=== PATIENT | male | born 1930 | race Caucasian/White ===

== ENCOUNTER 2018-02-08 19:57 | Inpatient (IN) | payer MEDICARE, BC ==
[~2018-02-08] VITALS: Ht 6038.7 cm; Wt 80.9 kg
[~2018-02-08 19:57] MED LIST: ASCO500C15 PO; BUDE10.2 INH; CETI5TAB8 PO; CILO100T PO; CINN500C16 PO; DIGO-27 PO; DULO30CA51 PO; FURO40TA4 PO; GABA-532 PO; HYDR-569 PO; LEVO25TA2 PO; MAGN400C PO; METH500T6 PO; METO25TA6 PO; OMEG1CAP46 PO; OMEP40CA PO; POTA10TA15 PO; PRED20TA PO; SPIR25TA PO; TIOT18CA7 IH; WARF6TAB49 PO; ZOC40T PO
[2018-02-08] MEDS ORDERED: albuterol 2.5 MG/3 ML nebule NEB ONE (20:30)
[2018-02-08 21:19] LABS: BASOPHILS # (AUTO) 0.2 X10'3 (0-0.2); BASOPHILS % (AUTO) 2.1 % (0-1); EOSINOPHILS # (AUTO) 0.2 X10'3 (0-0.9); HEMATOCRIT 34.8 % (42.0-52.0); HEMOGLOBIN 11.6 g/dl (14.0-17.9); LYMPHOCYTES # (AUTO) 1.9 X10'3 (1.1-4.8); LYMPHOCYTES % (AUTO) 22.2 % (21-51); MEAN CORPUSCULAR HGB CONC 33.4 % (33.0-36.5); MEAN CORPUSCULAR VOLUME 92.8 FL (78-98); MEAN PLATELET VOLUME 8.4 FL (7.4-10.4); MONOCYTES # (AUTO) 0.8 X10'3 (0-0.9); MONOCYTES % (AUTO) 9.2 % (2-12); NEUTROPHILS # (AUTO) 5.6 X10'3 (1.8-7.7); NEUTROPHILS % (AUTO) 64.5 % (42-75); PLATELET COUNT 179 X10'3 (140-440); RED BLOOD COUNT 3.75 X10'6 (4.70-6.10); RED CELL DISTRIBUTION WIDTH 15.2 % (11.5-14.5); WHITE BLOOD COUNT 8.7 X10'3 (4.5-11.0)
[2018-02-08 21:35] LABS: PARTIAL THROMBOPLASTIN TIME 44 SECONDS (22-32); PROTHROMBIN TIME 30.3 SECONDS (9.0-12.0)
[2018-02-08] MEDS ORDERED: methylPREDNISolone sod succ 125mg/2ml vial IV ONE (21:40)
[2018-02-08 21:45] LABS: ALANINE AMINOTRANSFERASE 20 U/L (12-78); ALBUMIN 3.4 G/DL (3.4-5.0); ALKALINE PHOSPHATASE 79 IU/L (46-116); ANION GAP 6 (8-16); ASPARTATE AMINO TRANSFERASE 23 U/L (10-37); BILIRUBIN,TOTAL 0.6 MG/DL (0.1-1.0); BLOOD UREA NITROGEN 19 MG/DL (7-18); BUN/CREATININE RATIO 17.4 (5.4-32.0); CALCIUM 8.8 MG/DL (8.5-10.1); CHLORIDE 101 MMOL/L (99-107); CREATININE 1.09 MG/DL (0.60-1.10); GLUCOSE 110 MG/DL (70-104); MAGNESIUM 2.1 MG/DL (1.5-2.4); POTASSIUM 4.3 MMOL/L (3.5-5.1); SODIUM 141 MMOL/L (135-145); TOTAL CARBON DIOXIDE 33.9 MMOL/L (24-32); TOTAL PROTEIN 6.9 G/DL (6.4-8.2); eGFR 64 ML/MIN
[2018-02-08] MEDS ORDERED: acetaminophen 325mg tablet PO ONE (22:55)
[2018-02-08] MEDS ORDERED: PRED20TA PO (22:57)
[2018-02-08] MEDS ORDERED: HYDROcodone/acetaminophen 5mg/325mg tablet PO ONE (23:00)
[2018-02-09 00:31] LABS: ABG BASE EXCESS 3.3 mmol/L (-2.0-3.0); ABG HCO3 27.8 mmol/L (22.0-26.0); ABG OXYGEN SATURATION 86.8 % (95-98); ABG PCO2 (T) 41.7 mmHg (35.0-48.0); ABG PO2 (T) 52.5 mmHg (83-108); ALLEN'S TEST Positive; FCOHb 0.6 % (0.5-1.5); FLOW 4 L/min; FMetHb 0.1 % (0.3-1.12); FO2Hb 86.2 % (94-100); PATIENT TEMPERATURE 36.7; TOTAL HEMOGLOBIN 12.5 G/dl (14.0-18.0)
[2018-02-09] MEDS ORDERED: metoclopramide 5 mg/ml inj IV PRN (00:35)
[2018-02-09] MEDS ORDERED: HYDROcodone/acetaminophen 5mg/325mg tablet PO PRN (00:35)
[2018-02-09] MEDS ORDERED: acetaminophen 650mg rectal suppository RC PRN (00:35)
[2018-02-09] MEDS ORDERED: bisacodyl 10mg suppository rectal RC PRN (00:35)
[2018-02-09] MEDS ORDERED: acetaminophen 325mg tablet PO PRN ×2 (00:35)
[2018-02-09] MEDS ORDERED: diphenhydrAMINE 25mg capsule PO PRN (00:35)
[2018-02-09] MEDS ORDERED: HYDROmorphone inj. 0.5 MG/0.5 ML DISP.SYRIN IV PRN ×2 (00:35)
[2018-02-09] MEDS ORDERED: magnesium hydroxide 30ml (MOM) UD suspension PO PRN (00:35)
[2018-02-09] MEDS ORDERED: mag hydrox/Alum hydrox/simeth 30ml oral suspension PO PRN (00:35)
[2018-02-09] MEDS ORDERED: ondansetron/PF 4mg/2ml inj IV PRN (00:35)
[2018-02-09] MEDS ORDERED: diphenhydrAMINE 50 mg/ml inj IV PRN (00:35)
[2018-02-09] MEDS ORDERED: morphine 4 MG/ML inj SYRINge IV PRN ×2 (00:35)
[2018-02-09] MEDS: CefTRIAXone/D5W-Rocephin 1gm 50 ML IV SCH ×2 (01:40→21:07)
[2018-02-09] MEDS: azithromycin 250mg tablet PO SCH ×2 (01:40→21:07)
[2018-02-09] MEDS ORDERED: LORazepam 2 mg/ml vial ONE (07:52)
[2018-02-09] MEDS ORDERED: LORazepam 2 mg/ml vial IV ONE (07:55)
[2018-02-09] MEDS: lactobacillus rhamnosus 10,000 MMU CELLS/CAPSULE PO SCH ×2 (08:43→20:14)
[2018-02-09] MEDS: levoTHYROXINE 25mcg tablet PO SCH (08:44)
[2018-02-09] MEDS: metoprolol tartrate 25mg tablet PO SCH ×2 (08:44→20:14)
[2018-02-09] MEDS: digoxin 250mcg (0.25mg) tablet PO SCH (08:44)
[2018-02-09] MEDS: pantoprazole 40mg Tablet.DR PO SCH (08:44)
[2018-02-09] MEDS: gabapentin 300mg capsule PO SCH ×2 (08:45→20:15)
[2018-02-09] MEDS: HYDROcodone/acetaminophen 5mg/325mg tablet PO SCH ×2 (08:45→20:14)
[2018-02-09] MEDS: docusate sod 100mg capsule PO SCH ×2 (08:45→20:15)
[2018-02-09] MEDS: furosemide 10 MG/1 ML 10ml inj IV SCH (08:48)
[2018-02-09] MEDS ORDERED: ipratropium/albuterol 3ml nebule ONE (09:05)
[2018-02-09] MEDS ORDERED: ipratropium/albuterol 3ml nebule NEB PRN (09:10)
[2018-02-09 09:17] LABS: LIPASE < 50 U/L (73-393)
[2018-02-09] MEDS ORDERED: diltiazem-NS 100mg/100ml 100 ML IV PRN (10:00)
[2018-02-09] MEDS ORDERED: albuterol 2.5 MG/3 ML nebule NEB PRN (10:00)
[2018-02-09] MEDS: methylPREDNISolone sod succ 125mg/2ml vial IV SCH ×3 (10:20→20:23)
[2018-02-09] MEDS: cilostazol 50mg tablet PO SCH ×2 (10:23→16:31)
[2018-02-09] MEDS: ipratropium/albuterol 3ml nebule NEB SCH ×4 (11:40→23:00)
[2018-02-09] MEDS ORDERED: temazepam 15mg capsule PO PRN (21:00)
[2018-02-09] MEDS ORDERED: warfarin 5mg tablet PO ONE (21:00)
[2018-02-09] MEDS ORDERED: warfarin 3mg tablet PO SCH (21:00)
[2018-02-09] MEDS ORDERED: ipratropium/albuterol 3ml nebule NEB SCH (21:00)
[2018-02-09] MEDS: cyclobenzaprine 10mg tablet PO SCH (21:07)
[2018-02-09] MEDS: duloxetine 30mg CAPSULE.DR PO SCH (21:13)
[2018-02-09] MEDS: atorvastatin 20mg tablet PO SCH (21:13)
[2018-02-10] MEDS: methylPREDNISolone sod succ 125mg/2ml vial IV SCH ×4 (02:33→22:09)
[2018-02-10] MEDS: ipratropium/albuterol 3ml nebule NEB SCH ×6 (02:44→23:02)
[2018-02-10] MEDS: cilostazol 50mg tablet PO SCH ×2 (07:00→16:00)
[2018-02-10 07:10] LABS: BASOPHILS % (AUTO) 0.4 % (0-1); EOSINOPHILS # (AUTO) 0.1 X10'3 (0-0.9); EOSINOPHILS % (AUTO) 0.6 % (0-6); HEMATOCRIT 34.1 % (42.0-52.0); HEMOGLOBIN 11.2 g/dl (14.0-17.9); LYMPHOCYTES # (AUTO) 0.6 X10'3 (1.1-4.8); LYMPHOCYTES % (AUTO) 6.6 % (21-51); MEAN CORPUSCULAR HEMOGLOBIN 30.4 PG (27.0-31.0); MEAN CORPUSCULAR HGB CONC 32.8 % (33.0-36.5); MEAN CORPUSCULAR VOLUME 92.5 FL (78-98); MEAN PLATELET VOLUME 8.4 FL (7.4-10.4); MONOCYTES # (AUTO) 0.1 X10'3 (0-0.9); MONOCYTES % (AUTO) 0.9 % (2-12); NEUTROPHILS # (AUTO) 7.9 X10'3 (1.8-7.7); NEUTROPHILS % (AUTO) 91.5 % (42-75); PLATELET COUNT 179 X10'3 (140-440); RED BLOOD COUNT 3.68 X10'6 (4.70-6.10); RED CELL DISTRIBUTION WIDTH 15.4 % (11.5-14.5); WHITE BLOOD COUNT 8.6 X10'3 (4.5-11.0)
[2018-02-10 07:19] LABS: INR 1.5 INR; PROTHROMBIN TIME 15.4 SECONDS (9.0-12.0)
[2018-02-10 07:30] LABS: ALANINE AMINOTRANSFERASE 20 U/L (12-78); ALBUMIN 3.1 G/DL (3.4-5.0); ALBUMIN/GLOBULIN RATIO 0.9 (1.1-1.5); ALKALINE PHOSPHATASE 72 IU/L (46-116); ANION GAP 8 (8-16); ASPARTATE AMINO TRANSFERASE 23 U/L (10-37); BILIRUBIN,TOTAL 0.5 MG/DL (0.1-1.0); BLOOD UREA NITROGEN 21 MG/DL (7-18); BUN/CREATININE RATIO 28.4 (5.4-32.0); CHLORIDE 102 MMOL/L (99-107); CREATININE 0.74 MG/DL (0.60-1.10); GLUCOSE 143 MG/DL (70-104); POTASSIUM 4.4 MMOL/L (3.5-5.1); SODIUM 140 MMOL/L (135-145); TOTAL PROTEIN 6.6 G/DL (6.4-8.2); eGFR > 90 ML/MIN
[2018-02-10] MEDS: pantoprazole 40mg Tablet.DR PO SCH (08:05)
[2018-02-10] MEDS: metoprolol tartrate 25mg tablet PO SCH (08:06)
[2018-02-10] MEDS: lactobacillus rhamnosus 10,000 MMU CELLS/CAPSULE PO SCH ×2 (08:09→22:06)
[2018-02-10] MEDS: lisinopril 2.5mg tablet PO SCH (08:09)
[2018-02-10] MEDS: docusate sod 100mg capsule PO SCH ×2 (08:10→22:06)
[2018-02-10] MEDS: aspirin 81mg tablet.DR PO SCH (08:10)
[2018-02-10] MEDS: gabapentin 300mg capsule PO SCH ×2 (08:10→22:06)
[2018-02-10] MEDS: levoTHYROXINE 25mcg tablet PO SCH (08:10)
[2018-02-10] MEDS: HYDROcodone/acetaminophen 5mg/325mg tablet PO SCH ×2 (08:11→22:28)
[2018-02-10] MEDS: furosemide 10 MG/1 ML 10ml inj IV SCH (08:12)
[2018-02-10] MEDS: digoxin 250mcg (0.25mg) tablet PO SCH (08:13)
[2018-02-10] MEDS: diltiazem CD 120mg capsule (once-daily) PO SCH (11:05)
[2018-02-10] MEDS ORDERED: LORazepam 2 mg/ml vial IV ONE (16:05)
[2018-02-10 20:00] VITALS: BP_SYST 118; BP_SYST 132; BP_DIAS 66; BP_DIAS 74
[2018-02-10] MEDS: CefTRIAXone/D5W-Rocephin 1gm 50 ML IV SCH (21:00)
[2018-02-10] MEDS ORDERED: warfarin 7.5mg tablet PO ONE (21:00)
[2018-02-10 22:00] VITALS: BP 118/66
[2018-02-10] MEDS: duloxetine 30mg CAPSULE.DR PO SCH (22:06)
[2018-02-10] MEDS: cyclobenzaprine 10mg tablet PO SCH (22:06)
[2018-02-10] MEDS: azithromycin 250mg tablet PO SCH (22:06)
[2018-02-10] MEDS: atorvastatin 20mg tablet PO SCH (22:06)
[2018-02-11 02:00] VITALS: BP 112/72
[2018-02-11] MEDS: methylPREDNISolone sod succ 125mg/2ml vial IV SCH ×4 (02:10→23:49)
[2018-02-11] MEDS: ipratropium/albuterol 3ml nebule NEB SCH ×6 (02:33→22:48)
[2018-02-11 05:41] LABS: INR 1.3 INR; PROTHROMBIN TIME 13.2 SECONDS (9.0-12.0)
[2018-02-11 06:09] LABS: ALANINE AMINOTRANSFERASE 23 U/L (12-78); ALBUMIN 2.9 G/DL (3.4-5.0); ALBUMIN/GLOBULIN RATIO 0.9 (1.1-1.5); ALKALINE PHOSPHATASE 63 IU/L (46-116); ANION GAP 5 (8-16); ASPARTATE AMINO TRANSFERASE 20 U/L (10-37); BILIRUBIN,TOTAL 0.4 MG/DL (0.1-1.0); BLOOD UREA NITROGEN 25 MG/DL (7-18); BUN/CREATININE RATIO 34.7 (5.4-32.0); CALCIUM 8.8 MG/DL (8.5-10.1); CHLORIDE 102 MMOL/L (99-107); CREATININE 0.72 MG/DL (0.60-1.10); GLUCOSE 149 MG/DL (70-104); POTASSIUM 4.2 MMOL/L (3.5-5.1); SODIUM 139 MMOL/L (135-145); TOTAL PROTEIN 6.2 G/DL (6.4-8.2); eGFR > 90 ML/MIN
[2018-02-11 06:30] VITALS: BP 126/71
[2018-02-11] MEDS: docusate sod 100mg capsule PO SCH ×2 (07:59→20:21)
[2018-02-11] MEDS: pantoprazole 40mg Tablet.DR PO SCH (07:59)
[2018-02-11] MEDS: levoTHYROXINE 25mcg tablet PO SCH (08:00)
[2018-02-11] MEDS: lisinopril 2.5mg tablet PO SCH (08:01)
[2018-02-11] MEDS: furosemide 10 MG/1 ML 10ml inj IV SCH ×2 (08:01→20:00)
[2018-02-11] MEDS: diltiazem CD 120mg capsule (once-daily) PO SCH (08:01)
[2018-02-11] MEDS: lactobacillus rhamnosus 10,000 MMU CELLS/CAPSULE PO SCH ×2 (08:01→20:20)
[2018-02-11] MEDS: digoxin 250mcg (0.25mg) tablet PO SCH (08:01)
[2018-02-11] MEDS: aspirin 81mg tablet.DR PO SCH (08:02)
[2018-02-11] MEDS: gabapentin 300mg capsule PO SCH ×2 (08:02→20:20)
[2018-02-11] MEDS: HYDROcodone/acetaminophen 5mg/325mg tablet PO SCH ×2 (08:02→20:20)
[2018-02-11] MEDS: cilostazol 50mg tablet PO SCH ×2 (08:02→15:10)
[2018-02-11] MEDS ORDERED: diltiazem CD 120mg capsule (once-daily) PO ONE (09:40)
[2018-02-11 11:00] VITALS: BP 101/60
[2018-02-11] MEDS ORDERED: BUDE10.2 INH (13:04)
[2018-02-11] MEDS ORDERED: [UNRECOGNIZED DRUG - OTHER] (13:05)
[2018-02-11] MEDS ORDERED: diltiazem 5mg/ml 5ml inj. IV ONE (13:10)
[2018-02-11] MEDS ORDERED: verapamil 2.5 mg/ml inj IV ONE (13:35)
[2018-02-11 15:00] VITALS: BP 118/57
[2018-02-11] MEDS: benzonatate 100mg capsule PO SCH (15:10)
[2018-02-11] MEDS: HYDROcodone/acetaminophen 10/325mg tab PO PRN (15:11)
[2018-02-11 19:00] VITALS: BP 116/54
[2018-02-11] MEDS: atorvastatin 20mg tablet PO SCH (20:21)
[2018-02-11] MEDS: cyclobenzaprine 10mg tablet PO SCH (20:21)
[2018-02-11] MEDS: duloxetine 30mg CAPSULE.DR PO SCH (20:21)
[2018-02-11] MEDS: CefTRIAXone/D5W-Rocephin 1gm 50 ML IV SCH (20:22)
[2018-02-11] MEDS ORDERED: warfarin 10mg tablet PO ONE (21:00)
[2018-02-11 22:00] VITALS: BP 95/61
[2018-02-11] MEDS ORDERED: metoprolol tartrate 1mg/ml inj IV ONE (22:25)
[2018-02-12] VITALS (7 sets, daily range): BP systolic 97–119; BP diastolic 48–76
[2018-02-12] MEDS: ipratropium/albuterol 3ml nebule NEB SCH ×6 (03:00→22:48)
[2018-02-12 05:17] LABS: INR 1.9 INR; PROTHROMBIN TIME 19.1 SECONDS (9.0-12.0)
[2018-02-12 05:41] LABS: ALANINE AMINOTRANSFERASE 27 U/L (12-78); ALBUMIN/GLOBULIN RATIO 0.9 (1.1-1.5); ALKALINE PHOSPHATASE 67 IU/L (46-116); ANION GAP 7 (8-16); ASPARTATE AMINO TRANSFERASE 22 U/L (10-37); BILIRUBIN,TOTAL 0.4 MG/DL (0.1-1.0); BLOOD UREA NITROGEN 36 MG/DL (7-18); BUN/CREATININE RATIO 38.3 (5.4-32.0); CALCIUM 8.7 MG/DL (8.5-10.1); CHLORIDE 100 MMOL/L (99-107); CREATININE 0.94 MG/DL (0.60-1.10); GLUCOSE 150 MG/DL (70-104); POTASSIUM 3.9 MMOL/L (3.5-5.1); SODIUM 138 MMOL/L (135-145); TOTAL CARBON DIOXIDE 31.2 MMOL/L (24-32); TOTAL PROTEIN 6.2 G/DL (6.4-8.2); eGFR 76 ML/MIN
[2018-02-12] MEDS: HYDROcodone/acetaminophen 5mg/325mg tablet PO SCH ×2 (07:28→20:01)
[2018-02-12] MEDS: lisinopril 2.5mg tablet PO SCH (07:29)
[2018-02-12] MEDS: methylPREDNISolone sod succ 125mg/2ml vial IV SCH ×2 (07:29→15:52)
[2018-02-12] MEDS: lactobacillus rhamnosus 10,000 MMU CELLS/CAPSULE PO SCH ×2 (07:29→19:55)
[2018-02-12] MEDS: furosemide 10 MG/1 ML 10ml inj IV SCH ×2 (07:29→19:56)
[2018-02-12] MEDS: aspirin 81mg tablet.DR PO SCH (07:30)
[2018-02-12] MEDS: benzonatate 100mg capsule PO SCH ×3 (07:30→15:52)
[2018-02-12] MEDS: levoTHYROXINE 25mcg tablet PO SCH (07:30)
[2018-02-12] MEDS: gabapentin 300mg capsule PO SCH ×2 (07:30→19:55)
[2018-02-12] MEDS: digoxin 250mcg (0.25mg) tablet PO SCH (07:30)
[2018-02-12] MEDS: cilostazol 50mg tablet PO SCH ×2 (07:30→15:52)
[2018-02-12] MEDS: pantoprazole 40mg Tablet.DR PO SCH (07:31)
[2018-02-12] MEDS: docusate sod 100mg capsule PO SCH ×2 (07:34→20:01)
[2018-02-12] MEDS ORDERED: diltiazem CD 120mg capsule (once-daily) PO SCH (08:00)
[2018-02-12] MEDS ORDERED: furosemide 40mg/4ml inj IV STA (08:51)
[2018-02-12 09:26] LABS: ABG BASE EXCESS 2.9 mmol/L (-2.0-3.0); ABG HCO3 28.2 mmol/L (22.0-26.0); ABG OXYGEN SATURATION 90.4 % (95-98); ABG PH (T) 7.405 (7.350-7.450); ABG PO2 (T) 59.7 mmHg (83-108); FCOHb 0.3 % (0.5-1.5); FLOW 10 L/min; FMetHb 0.1 % (0.3-1.12); TOTAL HEMOGLOBIN 12.2 G/dl (14.0-18.0)
[2018-02-12] MEDS: levoFLOXACIN-Levaquin 500mg/D5 100 ML IV SCH (14:18)
[2018-02-12] MEDS: diltiazem SR 60mg capsule (twice daily) PO SCH (19:57)
[2018-02-12] MEDS ORDERED: warfarin 5mg tablet PO ONE ×2 (21:00)
[2018-02-12] MEDS: cyclobenzaprine 10mg tablet PO SCH (21:49)
[2018-02-12] MEDS: duloxetine 30mg CAPSULE.DR PO SCH (21:49)
[2018-02-12] MEDS: atorvastatin 20mg tablet PO SCH (21:50)
[2018-02-13] VITALS (11 sets, daily range): BP systolic 102–145; BP diastolic 37–97
[2018-02-13] MEDS: methylPREDNISolone sod succ 125mg/2ml vial IV SCH ×2 (00:09→08:08)
[2018-02-13] MEDS: benzonatate 100mg capsule PO SCH ×4 (00:10→23:50)
[2018-02-13] MEDS: ipratropium/albuterol 3ml nebule NEB SCH ×6 (03:08→23:35)
[2018-02-13 05:50] LABS: BASOPHILS % (AUTO) 0.1 % (0-1); EOSINOPHILS # (AUTO) 0.1 X10'3 (0-0.9); HEMATOCRIT 31.5 % (42.0-52.0); HEMOGLOBIN 10.3 g/dl (14.0-17.9); LYMPHOCYTES # (AUTO) 0.5 X10'3 (1.1-4.8); LYMPHOCYTES % (AUTO) 6.3 % (21-51); MEAN CORPUSCULAR HEMOGLOBIN 30.4 PG (27.0-31.0); MEAN CORPUSCULAR HGB CONC 32.7 % (33.0-36.5); MEAN CORPUSCULAR VOLUME 92.8 FL (78-98); MEAN PLATELET VOLUME 7.9 FL (7.4-10.4); MONOCYTES # (AUTO) 0.3 X10'3 (0-0.9); MONOCYTES % (AUTO) 3.9 % (2-12); NEUTROPHILS # (AUTO) 7.3 X10'3 (1.8-7.7); NEUTROPHILS % (AUTO) 88.7 % (42-75); PLATELET COUNT 185 X10'3 (140-440); RED BLOOD COUNT 3.39 X10'6 (4.70-6.10); RED CELL DISTRIBUTION WIDTH 15.5 % (11.5-14.5); WHITE BLOOD COUNT 8.3 X10'3 (4.5-11.0)
[2018-02-13 05:55] LABS: INR 3.5 INR; PROTHROMBIN TIME 34.7 SECONDS (9.0-12.0)
[2018-02-13 06:15] LABS: ALANINE AMINOTRANSFERASE 24 U/L (12-78); ALBUMIN 2.7 G/DL (3.4-5.0); ALKALINE PHOSPHATASE 58 IU/L (46-116); ANION GAP 5 (8-16); ASPARTATE AMINO TRANSFERASE 17 U/L (10-37); BILIRUBIN,TOTAL 0.4 MG/DL (0.1-1.0); BLOOD UREA NITROGEN 39 MG/DL (7-18); BUN/CREATININE RATIO 42.9 (5.4-32.0); CALCIUM 8.4 MG/DL (8.5-10.1); CHLORIDE 100 MMOL/L (99-107); CREATININE 0.91 MG/DL (0.60-1.10); GLUCOSE 155 MG/DL (70-104); POTASSIUM 4.2 MMOL/L (3.5-5.1); SODIUM 139 MMOL/L (135-145); TOTAL CARBON DIOXIDE 33.7 MMOL/L (24-32); TOTAL PROTEIN 5.5 G/DL (6.4-8.2); eGFR 78 ML/MIN
[2018-02-13] MEDS: docusate sod 100mg capsule PO SCH ×2 (08:00→20:00)
[2018-02-13] MEDS: levoFLOXACIN-Levaquin 500mg/D5 100 ML IV SCH (08:06)
[2018-02-13] MEDS: furosemide 10 MG/1 ML 10ml inj IV SCH ×2 (08:06→21:50)
[2018-02-13] MEDS: aspirin 81mg tablet.DR PO SCH (08:06)
[2018-02-13] MEDS: HYDROcodone/acetaminophen 5mg/325mg tablet PO SCH ×2 (08:08→21:50)
[2018-02-13] MEDS: cilostazol 50mg tablet PO SCH ×2 (08:08→15:19)
[2018-02-13] MEDS: levoTHYROXINE 25mcg tablet PO SCH (08:08)
[2018-02-13] MEDS: digoxin 250mcg (0.25mg) tablet PO SCH (08:09)
[2018-02-13] MEDS: lisinopril 2.5mg tablet PO SCH (08:09)
[2018-02-13] MEDS: lactobacillus rhamnosus 10,000 MMU CELLS/CAPSULE PO SCH ×2 (08:09→21:49)
[2018-02-13] MEDS: gabapentin 300mg capsule PO SCH ×2 (08:09→21:49)
[2018-02-13] MEDS: pantoprazole 40mg Tablet.DR PO SCH (08:09)
[2018-02-13] MEDS: diltiazem SR 60mg capsule (twice daily) PO SCH ×2 (12:12→21:58)
[2018-02-13] MEDS: theophylline anhydrous 100mg SR-12hr tablet PO SCH (15:19)
[2018-02-13] MEDS: methylPREDNISolone sod succ/PF 40mg inj. IV SCH ×2 (15:22→23:53)
[2018-02-13] MEDS ORDERED: MESSAGE TO NURSING PO NR (20:00)
[2018-02-13] MEDS: atorvastatin 20mg tablet PO SCH (21:49)
[2018-02-13] MEDS: cyclobenzaprine 10mg tablet PO SCH (21:49)
[2018-02-13] MEDS: duloxetine 30mg CAPSULE.DR PO SCH (21:49)
[2018-02-14] VITALS (9 sets, daily range): BP systolic 100–131; BP diastolic 46–99
[2018-02-14] MEDS: ipratropium/albuterol 3ml nebule NEB SCH ×6 (03:00→23:12)
[2018-02-14 05:52] LABS: INR 3.7 INR; PROTHROMBIN TIME 36.7 SECONDS (9.0-12.0)
[2018-02-14 06:11] LABS: ALANINE AMINOTRANSFERASE 24 U/L (12-78); ALBUMIN 2.8 G/DL (3.4-5.0); ALKALINE PHOSPHATASE 53 IU/L (46-116); ANION GAP 4 (8-16); ASPARTATE AMINO TRANSFERASE 18 U/L (10-37); BILIRUBIN,TOTAL 0.5 MG/DL (0.1-1.0); BLOOD UREA NITROGEN 43 MG/DL (7-18); BUN/CREATININE RATIO 48.3 (5.4-32.0); CALCIUM 8.4 MG/DL (8.5-10.1); CHLORIDE 99 MMOL/L (99-107); CREATININE 0.89 MG/DL (0.60-1.10); GLUCOSE 133 MG/DL (70-104); POTASSIUM 4.3 MMOL/L (3.5-5.1); SODIUM 140 MMOL/L (135-145); TOTAL CARBON DIOXIDE 36.8 MMOL/L (24-32); TOTAL PROTEIN 5.7 G/DL (6.4-8.2); eGFR 80 ML/MIN
[2018-02-14] MEDS: levoTHYROXINE 25mcg tablet PO SCH (07:18)
[2018-02-14] MEDS: gabapentin 300mg capsule PO SCH ×2 (07:18→20:07)
[2018-02-14] MEDS: cilostazol 50mg tablet PO SCH ×2 (07:19→16:20)
[2018-02-14] MEDS: HYDROcodone/acetaminophen 5mg/325mg tablet PO SCH ×2 (07:19→20:07)
[2018-02-14] MEDS: docusate sod 100mg capsule PO SCH ×2 (07:19→20:07)
[2018-02-14] MEDS: aspirin 81mg tablet.DR PO SCH (07:19)
[2018-02-14] MEDS: lactobacillus rhamnosus 10,000 MMU CELLS/CAPSULE PO SCH ×2 (07:19→20:07)
[2018-02-14] MEDS: digoxin 250mcg (0.25mg) tablet PO SCH (07:19)
[2018-02-14] MEDS: pantoprazole 40mg Tablet.DR PO SCH (07:20)
[2018-02-14] MEDS: furosemide 10 MG/1 ML 10ml inj IV SCH ×2 (07:20→20:08)
[2018-02-14] MEDS: lisinopril 2.5mg tablet PO SCH (07:20)
[2018-02-14] MEDS: benzonatate 100mg capsule PO SCH ×2 (07:20→16:19)
[2018-02-14] MEDS: theophylline anhydrous 100mg SR-12hr tablet PO SCH (07:20)
[2018-02-14] MEDS: methylPREDNISolone sod succ/PF 40mg inj. IV SCH ×2 (07:21→20:07)
[2018-02-14] MEDS: levoFLOXACIN-Levaquin 500mg/D5 100 ML IV SCH (07:21)
[2018-02-14] MEDS: diltiazem SR 60mg capsule (twice daily) PO SCH ×2 (07:24→20:07)
[2018-02-14] MEDS: HYDROcodone/acetaminophen 10/325mg tab PO PRN (12:53)
[2018-02-14] MEDS: duloxetine 30mg CAPSULE.DR PO SCH (20:41)
[2018-02-14] MEDS: cyclobenzaprine 10mg tablet PO SCH (20:42)
[2018-02-14] MEDS: atorvastatin 20mg tablet PO SCH (21:00)
[2018-02-15] MEDS: methylPREDNISolone sod succ/PF 40mg inj. IV SCH ×4 (02:14→20:33)
[2018-02-15 03:00] VITALS: BP 104/50
[2018-02-15] MEDS: ipratropium/albuterol 3ml nebule NEB SCH ×6 (03:32→23:11)
[2018-02-15 06:00] VITALS: BP 114/50
[2018-02-15 06:23] LABS: INR 3.3 INR; PROTHROMBIN TIME 33.1 SECONDS (9.0-12.0)
[2018-02-15 06:30] LABS: ALBUMIN 2.6 G/DL (3.4-5.0); ANION GAP 4 (8-16); BLOOD UREA NITROGEN 39 MG/DL (7-18); BUN/CREATININE RATIO 49.4 (5.4-32.0); CALCIUM 8.2 MG/DL (8.5-10.1); CHLORIDE 97 MMOL/L (99-107); CREATININE 0.79 MG/DL (0.60-1.10); GLUCOSE 148 MG/DL (70-104); POTASSIUM 4.2 MMOL/L (3.5-5.1); SODIUM 138 MMOL/L (135-145); TOTAL CARBON DIOXIDE 36.9 MMOL/L (24-32); eGFR > 90 ML/MIN
[2018-02-15] MEDS: pantoprazole 40mg Tablet.DR PO SCH (08:15)
[2018-02-15] MEDS: aspirin 81mg tablet.DR PO SCH (08:16)
[2018-02-15] MEDS: docusate sod 100mg capsule PO SCH ×2 (08:16→20:33)
[2018-02-15] MEDS: lactobacillus rhamnosus 10,000 MMU CELLS/CAPSULE PO SCH ×2 (08:16→20:32)
[2018-02-15] MEDS: gabapentin 300mg capsule PO SCH ×2 (08:16→20:32)
[2018-02-15] MEDS: diltiazem SR 60mg capsule (twice daily) PO SCH ×2 (08:18→20:32)
[2018-02-15] MEDS: benzonatate 100mg capsule PO SCH ×3 (08:18→16:19)
[2018-02-15] MEDS: HYDROcodone/acetaminophen 5mg/325mg tablet PO SCH ×2 (08:20→20:32)
[2018-02-15] MEDS: lisinopril 2.5mg tablet PO SCH (08:21)
[2018-02-15] MEDS: furosemide 10 MG/1 ML 10ml inj IV SCH ×2 (08:31→20:34)
[2018-02-15] MEDS: digoxin 250mcg (0.25mg) tablet PO SCH (08:33)
[2018-02-15] MEDS: cilostazol 50mg tablet PO SCH ×2 (08:41→16:19)
[2018-02-15] MEDS: levoTHYROXINE 25mcg tablet PO SCH (08:41)
[2018-02-15] MEDS: theophylline anhydrous 100mg ER capsule 24-hour PO SCH (08:41)
[2018-02-15] MEDS: levoFLOXACIN 500mg tablet PO SCH (10:33)
[2018-02-15 11:00] VITALS: BP 123/51
[2018-02-15 15:00] VITALS: BP 120/43
[2018-02-15 19:00] VITALS: BP 133/63
[2018-02-15] MEDS: atorvastatin 20mg tablet PO SCH (20:33)
[2018-02-15] MEDS: cyclobenzaprine 10mg tablet PO SCH (20:33)
[2018-02-15] MEDS: duloxetine 30mg CAPSULE.DR PO SCH (20:33)
[2018-02-15] MEDS ORDERED: warfarin 3mg tablet PO ONE (21:00)
[2018-02-15 23:00] VITALS: BP 101/41
[2018-02-16] MEDS: benzonatate 100mg capsule PO SCH ×2 (00:37→07:58)
[2018-02-16] MEDS: methylPREDNISolone sod succ/PF 40mg inj. IV SCH ×2 (02:36→08:01)
[2018-02-16 03:00] VITALS: BP 106/68
[2018-02-16] MEDS: ipratropium/albuterol 3ml nebule NEB SCH ×3 (03:25→11:48)
[2018-02-16 06:00] VITALS: BP 141/54
[2018-02-16 07:42] LABS: INR 3.1 INR; PROTHROMBIN TIME 30.8 SECONDS (9.0-12.0)
[2018-02-16 07:55] LABS: ALBUMIN 2.9 G/DL (3.4-5.0); ANION GAP 3 (8-16); BLOOD UREA NITROGEN 41 MG/DL (7-18); BUN/CREATININE RATIO 48.8 (5.4-32.0); CALCIUM 8.5 MG/DL (8.5-10.1); CHLORIDE 97 MMOL/L (99-107); CREATININE 0.84 MG/DL (0.60-1.10); GLUCOSE 143 MG/DL (70-104); POTASSIUM 3.8 MMOL/L (3.5-5.1); SODIUM 138 MMOL/L (135-145); TOTAL CARBON DIOXIDE 37.7 MMOL/L (24-32); eGFR 86 ML/MIN
[2018-02-16] MEDS: gabapentin 300mg capsule PO SCH (07:58)
[2018-02-16] MEDS: levoTHYROXINE 25mcg tablet PO SCH (07:58)
[2018-02-16] MEDS: digoxin 250mcg (0.25mg) tablet PO SCH (07:59)
[2018-02-16] MEDS: docusate sod 100mg capsule PO SCH (07:59)
[2018-02-16] MEDS: HYDROcodone/acetaminophen 5mg/325mg tablet PO SCH (07:59)
[2018-02-16] MEDS: lactobacillus rhamnosus 10,000 MMU CELLS/CAPSULE PO SCH (07:59)
[2018-02-16] MEDS: pantoprazole 40mg Tablet.DR PO SCH (08:00)
[2018-02-16] MEDS: cilostazol 50mg tablet PO SCH (08:00)
[2018-02-16] MEDS: lisinopril 2.5mg tablet PO SCH (08:00)
[2018-02-16] MEDS: furosemide 10 MG/1 ML 10ml inj IV SCH (08:00)
[2018-02-16] MEDS: aspirin 81mg tablet.DR PO SCH (08:00)
[2018-02-16] MEDS: diltiazem SR 60mg capsule (twice daily) PO SCH (08:00)
[2018-02-16] MEDS: theophylline anhydrous 100mg ER capsule 24-hour PO SCH (08:00)
[2018-02-16] MEDS: levoFLOXACIN 500mg tablet PO SCH (10:56)
[2018-02-16 11:00] VITALS: BP 105/59
[2018-02-19] MEDS ORDERED: ASCO-134 PO (06:19)
== END 2018-02-16 15:40 | disposition left against medical advice (07) | DRG 291 ==
LOC: ER 19:58 → ED HOLD 02-09 00:33 → PCU 3S 02-10 19:29
PROVIDERS: ADMIT Family Medicine; ATTEND Internal Medicine
PROC: 5A09357 Assistance with Respiratory Ventilation, Less than 24 Consecutive Hours, Continuous Positive Airway Pressure (ICD-10-PCS; principal; 2018-02-08)
PROC: 5A09357 Assistance with Respiratory Ventilation, Less than 24 Consecutive Hours, Continuous Positive Airway Pressure (ICD-10-PCS; 2018-02-09)
PROC: 5A09357 Assistance with Respiratory Ventilation, Less than 24 Consecutive Hours, Continuous Positive Airway Pressure (ICD-10-PCS; 2018-02-12)
PROC: 5A09357 Assistance with Respiratory Ventilation, Less than 24 Consecutive Hours, Continuous Positive Airway Pressure (ICD-10-PCS; 2018-02-13)
PROC: 5A09357 Assistance with Respiratory Ventilation, Less than 24 Consecutive Hours, Continuous Positive Airway Pressure (ICD-10-PCS; 2018-02-14)
DX: I11.0 Hypertensive heart disease with heart failure (principal); J96.21 Acute and chronic respiratory failure with hypoxia; I48.91 Unspecified atrial fibrillation; I48.92 Unspecified atrial flutter; J44.1 Chronic obstructive pulmonary disease with (acute) exacerbation; J44.0 Chronic obstructive pulmonary disease with (acute) lower respiratory infection; I50.23 Acute on chronic systolic (congestive) heart failure; E78.00 Pure hypercholesterolemia, unspecified; I25.10 Atherosclerotic heart disease of native coronary artery without angina pectoris; J20.9 Acute bronchitis, unspecified; R79.1 Abnormal coagulation profile; Z53.21 Procedure and treatment not carried out due to patient leaving prior to being seen by health care provider; Z99.81 Dependence on supplemental oxygen; Z95.1 Presence of aortocoronary bypass graft; Z79.01 Long term (current) use of anticoagulants; Z79.52 Long term (current) use of systemic steroids; Z79.899 Other long term (current) drug therapy; Z87.891 Personal history of nicotine dependence; Z82.49 Family history of ischemic heart disease and other diseases of the circulatory system; Z80.9 Family history of malignant neoplasm, unspecified
CPT/HCPCS: 36415; 36600; 71045; 71250; 80048; 80053; 80162; 82803; 83605; 83690; 83735; 83880; 84145; 84443; 84484; 85018; 85025; 85610; 85730; 87070; 92616; 93005; 94640; 94660; 94760; 96374; 97110; 97162; 97530; 99285; A6212; A6213; A6257; J0696; J1940; J1956; J2060; J2765; J2920; J2930; J3490; J7030

== ENCOUNTER 2018-02-18 10:44 | Emergency (ER) | payer MEDICARE, BC ==
[~2018-02-18] VITALS: Ht 182.9 cm; Wt 75.9 kg
[~2018-02-18 10:44] MED LIST changes: -DIGO-27 PO; -METO25TA6 PO; -PRED20TA PO; -SPIR25TA PO; +[UNRECOGNIZED DRUG - OTHER]
[2018-02-18] MEDS ORDERED: ipratropium/albuterol 3ml nebule NEB ONE (11:00)
[2018-02-18] MEDS ORDERED: methylPREDNISolone sod succ 125mg/2ml vial IV ONE (11:00)
[2018-02-18 11:12] LABS: BASOPHILS # (AUTO) 0.2 X10'3 (0-0.2); EOSINOPHILS # (AUTO) 0.3 X10'3 (0-0.9); EOSINOPHILS % (AUTO) 1.6 % (0-6); HEMATOCRIT 31.5 % (42.0-52.0); HEMOGLOBIN 10.6 g/dl (14.0-17.9); LYMPHOCYTES # (AUTO) 1.7 X10'3 (1.1-4.8); MEAN CORPUSCULAR HEMOGLOBIN 30.7 PG (27.0-31.0); MEAN CORPUSCULAR HGB CONC 33.5 % (33.0-36.5); MEAN CORPUSCULAR VOLUME 91.8 FL (78-98); MEAN PLATELET VOLUME 7.9 FL (7.4-10.4); MONOCYTES # (AUTO) 0.5 X10'3 (0-0.9); MONOCYTES % (AUTO) 2.9 % (2-12); NEUTROPHILS # (AUTO) 14.1 X10'3 (1.8-7.7); NEUTROPHILS % (AUTO) 84.5 % (42-75); PLATELET COUNT 206 X10'3 (140-440); RED BLOOD COUNT 3.43 X10'6 (4.70-6.10); RED CELL DISTRIBUTION WIDTH 14.9 % (11.5-14.5); WHITE BLOOD COUNT 16.7 X10'3 (4.5-11.0)
[2018-02-18 11:22] LABS: INR 2.8 INR; PARTIAL THROMBOPLASTIN TIME 36 SECONDS (22-32); PROTHROMBIN TIME 28.1 SECONDS (9.0-12.0)
[2018-02-18 11:26] LABS: ALANINE AMINOTRANSFERASE 34 U/L (12-78); ALBUMIN 3.1 G/DL (3.4-5.0); ALBUMIN/GLOBULIN RATIO 1.1 (1.1-1.5); ALKALINE PHOSPHATASE 67 IU/L (46-116); ANION GAP 2 (8-16); ASPARTATE AMINO TRANSFERASE 36 U/L (10-37); BILIRUBIN,TOTAL 1.3 MG/DL (0.1-1.0); BLOOD UREA NITROGEN 34 MG/DL (7-18); BUN/CREATININE RATIO 37.4 (5.4-32.0); CHLORIDE 95 MMOL/L (99-107); CREATININE 0.91 MG/DL (0.60-1.10); GLUCOSE 124 MG/DL (70-104); POTASSIUM 3.7 MMOL/L (3.5-5.1); SODIUM 136 MMOL/L (135-145); TOTAL CARBON DIOXIDE 38.6 MMOL/L (24-32); TOTAL PROTEIN 5.9 G/DL (6.4-8.2); eGFR 78 ML/MIN
[2018-02-18 14:33] LABS: CLARITY,URINE CLEAR (Clear); COLOR,URINE YELLOW (Yellow); GLUCOSE, URINE NEGATIVE (Neg); KETONES,URINE NEGATIVE (Neg); LEUKOCYTE ESTERASE ,URINE NEGATIVE (Neg); NITRITES, URINE NEGATIVE (Neg); OCCULT BLOOD,URINE NEGATIVE (Neg); PROTEIN,URINE NEGATIVE (Neg); UA COLLECTION TYPE STRAIGHT CATH; UROBILINOGEN,URINE 0.2 E.U/dL (0.2-1.0)
[2018-02-18 15:36] VITALS: BP 104/65
[2018-02-19] MEDS ORDERED: ASCO-134 PO (06:19)
== END 2018-02-18 17:05 ==
LOC: ER 10:44
DX: J96.10 Chronic respiratory failure, unspecified whether with hypoxia or hypercapnia (principal); J44.9 Chronic obstructive pulmonary disease, unspecified; I50.21 Acute systolic (congestive) heart failure; I25.10 Atherosclerotic heart disease of native coronary artery without angina pectoris; E78.00 Pure hypercholesterolemia, unspecified; I11.0 Hypertensive heart disease with heart failure; Z95.1 Presence of aortocoronary bypass graft; Z87.891 Personal history of nicotine dependence; Z60.2 Problems related to living alone; Z79.899 Other long term (current) drug therapy
CPT/HCPCS: 36415; 71045; 80053; 81003; 83880; 84484; 85025; 85610; 85730; 93005; 94640; 94760; 96374; 99285; A4310; J2930